=== PATIENT | male | born 1985 | race Caucasian/White ===

== ENCOUNTER 2025-06-22 14:47 | Emergency (ER) | payer OTHER ==
[~2025-06-22] VITALS: Ht 177.8 cm; Wt 108.9 kg
[2025-06-22 14:55] VITALS: BP 134/75; TEMP 98.3; O2SAT 99
[2025-06-22] MEDS ORDERED: GUAI-946 PO (15:19)
[2025-06-22] MEDS ORDERED: GUAIFENESIN/D-METHORPHAN HB 5 ML UDC ONE (15:28)
[2025-06-22] MEDS: GUAIFENESIN/D-METHORPHAN HB 5 ML UDC PO ONE (15:29)
== END 2025-06-22 15:37 | disposition home or self-care (01) ==
LOC: ER 15:34
DX: J06.9 Acute upper respiratory infection, unspecified (principal); B97.89 Other viral agents as the cause of diseases classified elsewhere